=== PATIENT | female | born 1960 | race Caucasian/White ===

== ENCOUNTER 2016-08-07 08:19 | Day surgery (SDC) | payer OTHER ==
--- NOTE | 2016-08-04 13:13 | MH ---
cc: MARIAMA MELENDEZ D.O., ROHIT DATE OF ADMISSION: 08/05/2016 DATE OF ADMISSION 08/05/2016 ADMISSION DIAGNOSIS Neck pain and numbness in the upper and lower extremities. HISTORY OF PRESENT ILLNESS This is a 55-year-old female who presented to us for evaluation of neck pain that she has had for four years, progressively getting worse. She has a history of bilateral rotator cuff repair and has pain radiating into her shoulders. She denies any radicular radiculopathy into the upper extremities but has pain radiating into her head. She has numbness in the upper extremities in a nonspecific dermatomal distribution. More recently she has had numbness in the lower extremities in no specific dermatomal distribution. She denies any bowel or bladder incontinence. She states she has had very poor upper body strength. She has recently been referred to physical therapy. She cannot have an MRI scan secondary to a pacemaker. Dr. Mendes has requested a CT myelogram to further evaluate any significant spinal stenosis. PAST MEDICAL HISTORY Significant for - 1. Hypothyroidism. 2. Sleep apnea. 3. Fatty liver. 4. Pacemaker. 5. Hysterectomy in 2000. 6. Cholecystectomy in 2004. 7. Left rotator cuff repair in 2010 and 2012. 8. Pacemaker placement in 2011. 9. Right rotator cuff and biceps repair in 2015. CURRENT MEDICATIONS 1. Synthroid 137 mcg daily. 2. Omeprazole 40 mg daily. 3. Melatonin 5 mg p.r.n. 4. [employer] Fusion 20 mg b.i.d. 5. Vitamin D3 2000 international units b.i.d. 6. Vitamin B12 500 mcg b.i.d. ALLERGIES TO MEDICATIONS She is allergic to - CODEINE MINOCYCLINE. MORPHINE. PENICILLIN. BRETHINE. TERBUTALINE. FAMILY HISTORY Her mother is at 66 years old, had heart disease and MS. Father is alive 82 years old. Her sister is alive at 55 years old. She had a brother who was at 23 years old from a motor vehicle accident. 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 She is single. She has three children. She lives with her ex-. She smokes 1/4 to 1/2 pack per day for the last year. She drinks 0-2 drinks of alcohol per day. REVIEW OF SYSTEMS CONSTITUTIONAL: She denies any fever or chills. EARS, NOSE AND THROAT: No pharyngitis or exudates. CARDIOVASCULAR: No chest pain. Positive for palpitations. RESPIRATORY: No cough or shortness of breath. GASTROINTESTINAL: No dysuria or hematuria. MUSCULOSKELETAL: Positive for back pain. SKIN: No rashes or pruritus. NEUROLOGIC: No difficulty with vision. Positive for difficulty with speech and memory. GASTROINTESTINAL: Positive for abdominal pain. No nausea. PSYCHIATRIC: No anxiety or depression symptoms. ENDOCRINE: No polyuria or polydipsia. HEMATOLOGIC: Positive for bruising but no bleeding tendencies. PHYSICAL EXAMINATION: HEAD: Normocephalic, atraumatic. NECK: Supple. No carotid bruits heard on auscultation. LUNGS: Clear to auscultation bilaterally. HEART: Regular rate and rhythm. Normal S1, S2. ABDOMEN: Soft, nontender. Positive bowel sounds. SKIN: No cyanosis or erythema. MUSCULOSKELETAL: She has 4+/5 bilateral deltoid strength from shoulder pain. Left triceps is 4/5, otherwise her strength is 5/5 in the upper extremities. NEUROLOGIC: She is awake, alert and oriented. Cranial nerves II through XII appear grossly intact. Her speech is fluent. Comprehension is good. Sensation is decreased in the left upper extremity in all distributions and in the first and fifth fingers. Otherwise intact in the upper and lower extremities. DATA REVIEW We reviewed the CT. Noncontrast CT of the cervical spine from October 25, 2015, which reveals loss of cervical lordosis and slight kyphosis. She has severe degenerative disk disease with anterior and posterior osteophytes involving C4/C5, C5/C6, C6/C7 with some degree of stenosis but since this is not a myelogram study the extent of cervical and foraminal stenosis is difficult to delineate. IMPRESSION A 55-year-old female with chronic history of neck pain along with numbness in the upper and lower extremities. She has pain that radiates from the occiput to the interscapular area. She also suffers from left rotator cuff injury with limited range of motion pain with movement as well as osteoarthritis involving the hands. She has advanced multilevel degenerative disk disease with anterior and posterior osteophytes and some degree of associated spinal stenosis as seen on the plain CT of the cervical spine. She has a cardiac pacemaker in place for bradycardia/syncope and cannot have an MRI scan. PLAN The patient will undergo a CT myelogram of the cervical, thoracic and lumbar spine. The patient will subsequently follow up with us to discuss treatment options. She will also be referred to physical therapy for strengthening exercises. The patient will follow up with us after the myelogram is complete for review and further planning. Dictated by: Ej Lund PA-C MD ROBERTA Pereira/ALIREZA /12:31 PM /12:54 PM
[~2016-08-07] VITALS: Ht 165.1 cm; Wt 69.1 kg
[~2016-08-07 08:19] MED LIST: CHOL1TAB42; LEVO-86 PO; MELA5TAB15 PO; OMEP40CA2 PO; SYNT175T PO; VITA500T4 PO
[2016-08-07 08:41] VITALS: BP 111/71; PULSE 59; RESP 18; TEMP 97.6; O2SAT 98
[2016-08-07] MEDS ORDERED: ALPR.5 PO (09:03)
[2016-08-07] MEDS ORDERED: PAXI10TA2 PO (09:03)
[2016-08-07] MEDS ORDERED: HYDR-3583 PO (09:03)
[2016-08-07] MEDS ORDERED: NITR1SUB3 SL (09:03)
[2016-08-07 09:07] LABS: AUTOMATED NEUTROPHIL # 2.8 TH/MM3 (1.8-7.7); BASOPHIL % 0.5 % (0.0-2.0); EOSINOPHIL # 0.3 TH/MM3 (0-0.4); EOSINOPHIL % 6.5 % (0.0-4.0); HEMATOCRIT 42.8 % (35.0-46.0); HEMO FLAGS DIFF FINAL; LYMPH % 28.8 % (9.0-44.0); LYMPHOCYTE # 1.4 TH/MM3 (1.0-4.8); MEAN CELL VOLUME 95.4 FL (80.0-100.0); MEAN CORPUSCULAR HEMOGLOBIN 32.2 PG (27.0-34.0); MEAN CORPUSCULAR HGB CONC 33.8 % (32.0-36.0); MONO % 6.2 % (0.0-8.0); PLATELET COUNT 194 TH/MM3 (150-450); RED BLOOD COUNT 4.48 MIL/MM3 (4.00-5.30); RED CELL DISTRIBUTION WIDTH 12.5 % (11.6-17.2); WHITE BLOOD COUNT 4.8 TH/MM3 (4.0-11.0)
[2016-08-07 09:16] LABS: PROTHROMBIN TIME - PATIENT 11.6 SEC (9.8-11.6)
[2016-08-07 09:26] LABS: POTASSIUM 3.7 MEQ/L (3.5-5.1)
[2016-08-07] MEDS ORDERED: DIAZEPAM 10 MG TAB ONE (09:33)
--- NOTE | 2016-08-07 10:54 | PD.RAD ---
Post Procedure Progress Note Pre Procedure Diagnosis: (1) Cervical disc disorder with radiculopathy Post Procedure Diagnosis: (1) Cervical disc disorder with radiculopathy Procedure Date: August 07, 2016 Supervising Radiologist: Cooper Vasquez JR Proceduralist/Assist: Kathy Jaramillo, RT(R), Dawn Lyons RT(R)() Anesthesia: Local Plan of Activity Patient to Unit: [facility]OPU Patient Condition: Good See PACS Report for procedural detail/treatment Spinal Procedure Myelogram L3-L4 Fluid Description: Clear Puncture Time: 10:12 Findings: complete myelogram. CT pending Jr. Pedro,Cooper Monterroso MD August 07, 2016 10:54
[2016-08-07 11:20] VITALS: BP 120/78; PULSE 60; RESP 20; TEMP 98.4; O2SAT 98
--- NOTE | 2016-08-07 11:50 | RADRPT ---
EXAM DATE/TIME: 08/07/2016 10:55 [facility] COMPARISON: No previous studies available for comparison. INDICATIONS : Patient is in need of a complete myelogram for evaluation of spinal stenosis. MEDICAL HISTORY : History of hypothyroidism, fatty liver. SURGICAL HISTORY : History of cardiac catheterization, pacemaker placement, gastric bypass, cholecystectomy, hysterectom y, bilateral rotator cuff repair. ENCOUNTER: Initial ACUITY: 1 week PAIN SCORE: 0/10 LUMBAR PUNCTURE TIME: 1009 hours FLUORO TIME: 1.2 minutes IMAGE SERIES: 5 CONTRAST: 18 cc Omnipaque (iohexol) 300 ACCESS LEVEL: L3-4 PROCEDURE : 1. Fluoroscopic guided lumbar puncture. 2. Instillation of intrathecal contrast. 3. Total spinal axis myelogram. The risks, benefits and alternatives to the procedure were explained and verbal and written consent w as obtained. The site was prepped in sterile fashion. Full sterile technique was used, including ca p, mask, sterile gloves and gown and a large sterile sheet. Hand hygiene and 2% chlorhexidine and/or betadine/alcohol prep was utilized per protocol for cutaneous antisepsis. The skin and subcutaneous tissues were infiltrated with local anesthetic solution. With fluoroscopic guidance the lumbar thecal sac was punctured at level above and a diagnostic quanti ty of contrast is present in the subarachnoid space. Following the lumbar radiographs contrast was r un cephalad and radiographs were obtained of the thoracic spine. Under fluoroscopic guidance contras t was placed in the cervical region and radiographs were obtained of the cervical region. The patient tolerated procedure well and there were no complications. CT scan is to be performed for further evaluation. CONCLUSION: Uncomplicated total axis myelogram as above. CT scan is to be performed for further evaluation. Cooper Vasquez Jr., MD on August 07, 2016 at 11:48 Board Certified Radiologist. This report was verified electronically.
--- NOTE | 2016-08-07 12:01 | RADRPT ---
EXAM DATE/TIME: 08/07/2016 11:00 [facility] COMPARISON: No previous studies available for comparison. INDICATIONS : Post-myelogram evaluation. RADIATION DOSE: 24.82 CTDIvol (mGy) MEDICAL HISTORY : Cardiovascular disease. Spinal stenosis. SURGICAL HISTORY : Pacemaker. Cholecystectomy.Hysterectomy. ENCOUNTER: Initial ACUITY: 1 day PAIN SCALE: 3/10 LOCATION: neck TECHNIQUE: Volumetric scanning of the cervical spine was performed. Multiplanar reconstructions in the sagittal, coronal and oblique axial planes were performed. Using automated exposure control and adjustment o f the mA and/or kV according to patient size, radiation dose was kept as low as reasonably achievable to obtain optimal diagnostic quality images. FINDINGS: Sagittal images demonstrate normal vertebral body alignment and curvature. The odontoid is intact. Th e occipital condyles and lateral masses of C1 are intact. Axial images were performed from C2-C3 to C7-T1. There is multilevel disc space narrowing and marginal osteophyte formation maximal at C6-C7. There is osteorathritis involving the atlantoaxial joint with sclerosis and osteophyte formation. The exam is performed following myelography. C2-C3: There is mild diffuse annular bulge of the disc. The neural foramina are clear bilaterally. There is no significant spinal canal stenosis. C3-C4: A small central protrusion is present impinging on the thecal sac but not significantly deforming the cord. C4-C5: A central disc protrusion is present impinging on the thecal sac. There is no significant spinal berenice l stenosis. The neural foramina are clear bilaterally. C5-C6: There is osteophytic ridging asymmetric to the right. There is no significant spinal canal stenosis. The neural foramina are clear bilaterally. C6-C7: There is osteophytic ridging asymmetric to the right. The neural foramina are clear bilaterally. Ther e is no significant spinal canal stenosis. This compromises the exiting right-sided nerve root exit z one. C7-T1: There is no evidence of disc protrusion or spinal canal stenosis. There is mild facet arthritis bilat erally. CONCLUSION: 1. Multiple degenerative disc disease with central protrusions maximal at C4-C5 and C5-C6 without sig nificant stenosis. Deven Barajas MD on August 07, 2016 at 11:50 Board Certified Radiologist. This report was verified electronically.
--- NOTE | 2016-08-07 12:08 | RADRPT ---
EXAM DATE/TIME: 08/07/2016 11:04 [facility] COMPARISON: No previous studies available for comparison. INDICATIONS : Post-myelogram evaluation. RADIATION DOSE: 26.42 CTDIvol (mGy) ; Combined studies - Thoracic Spine/Lumbar Spine MEDICAL HISTORY : Cardiovascular disease. Spinal stenosis. SURGICAL HISTORY : Pacemaker. Cholecystectomy.Hysterectomy. ENCOUNTER: Initial ACUITY: 1 day PAIN SCALE: 3/10 LOCATION: spine. TECHNIQUE: Volumetric scanning of the thoracic spine was performed. Multiplanar reconstructions in the sagittal , coronal and oblique axial planes were performed. Using automated exposure control and adjustment o f the mA and/or kV according to patient size, radiation dose was kept as low as reasonably achievable to obtain optimal diagnostic quality images. FINDINGS: FINDINGS: Sagittal images demonstrate normal vertebral body alignment and curvature. No fractures identified. A xial images performed from T1-T2 through T12-L1. There is multilevel disc space narrowing and margina l osteophyte formation maximal at T8-T9. T1-T2: No significant abnormalities identified. T2-T3: No significant abnormalities identified. T3-T4: There is no evidence of disc protrusion or spinal canal stenosis. There is mild facet arthritis bilat erally. T4-T5: There is no evidence of disc protrusion or spinal canal stenosis. T5-T6: There is mild facet arthritis bilaterally. There is no evidence of disc protrusion or spinal canal st enosis. T6-T7: There is no evidence of disc protrusion or spinal canal stenosis. T7-T8: No significant abnormalities identified. T8-T9: A small central to left sided protrusion is present not significantly impinging on the thecal sac. Th ere is no significant spinal canal stenosis. The neural foramina are clear bilaterally. T9-T10: No significant abnormalities identified. T10-T11: No significant abnormalities identified. T11-T12: No significant abnormalities identified. T12-L1: A calcified central disc protrusion is present impinging on the thecal sac. There is no significant s tierra canal stenosis. CONCLUSION: 1. Central protrusion at T12-L1 and a smaller protrusion at T8-T9. There is no significant spinal can al stenosis. Deven Barajas MD on August 07, 2016 at 12:00 Board Certified Radiologist. This report was verified electronically.
--- NOTE | 2016-08-07 12:42 | RADRPT ---
EXAM DATE/TIME: 08/07/2016 11:04 [facility] COMPARISON: No previous studies available for comparison. INDICATIONS : Post-myelogram evaluation. RADIATION DOSE: 26.42 CTDIvol (mGy) ; Combined studies - Thoracic Spine/Lumbar Spine MEDICAL HISTORY : Cardiovascular disease. Spinal stenosis. SURGICAL HISTORY : Pacemaker. Hysterectomy.Cholecystectomy. ENCOUNTER: Initial ACUITY: 1 day PAIN SCALE: 3/10 LOCATION: spine. TECHNIQUE: Volumetric scanning of the lumbar spine was performed. Multiplanar reconstructions in the sagittal, coronal and oblique axial planes were performed. Using automated exposure control and adjustment of the mA and/or kV according to patient size, radiation dose was kept as low as reasonably achievable t o obtain optimal diagnostic quality images. FINDINGS: Sagittal images demostrate normal vertebral body alignment and curvature. No fractures are identified . Axial images performed from T12-L1 through L5-S1. The exam is performed following myelography. T12-L1: There is central calcified disc impinging on the thecal sac ventrally and touching the ventral aspect of the cord. There is no significant spinal canal stenosis. L1-L2: There is mild diffuse annular bulge of the disc. The neural foramina are clear bilaterally. There is no significant spinal canal stenosis. L2-L3: No significant abnormalities identified. L3-L4: There is no evidence of disc protrusion or spinal canal stenosis. There is mild facet arthritis bilat erally. The neural foramina are clear bilaterally. L4-L5: There is no evidence of disc protrusion or spinal canal stenosis. There is moderate facet arthritis b ilaterally with ligamentum flavum hypertrophy. The neural foramina are clear bilaterally. L5-S1: There is central calcified disc without significant stenosis. The nerve roots are intact. The disc me asures one CM by 1.2 CM. CONCLUSION: 1. Central calcified disc at T12-S1 impinging on the thecal sac as above without significant stenosis . 2. There is also a central calcified disc at L5-S1 without stenosis or nerve or compromise. Deven Barajas MD on August 07, 2016 at 12:37 Board Certified Radiologist. This report was verified electronically.
[2016-08-07 14:25] VITALS: BP 109/73; PULSE 60; RESP 18; TEMP 98; O2SAT 97
== END 2016-08-07 14:25 | disposition home or self-care (01) ==
LOC: HROP 08:19 → HRIP 08:20 → HROP 14:25
PROVIDERS: ATTEND Neurological Surgery
DX: M51.16 Intervertebral disc disorders with radiculopathy, lumbar region (principal); M54.2 Cervicalgia; R20.0 Anesthesia of skin; M51.85 Other intervertebral disc disorders, thoracolumbar region; M51.87 Other intervertebral disc disorders, lumbosacral region
CPT/HCPCS: 62305; 72125; 72128; 72131; 80048; 85025; 85610; 85730

== ENCOUNTER → 2016-10-30 | Outpatient (CLI) | payer OTHER ==
[~2016-10-30] MED LIST changes: +ALPR.5 PO; -CHOL1TAB42; +CHOL1TAB42 PO; +DIAZ5 PO; +HYDR-3583 PO; +LEVO125T4 PO; -MELA5TAB15 PO; +MULT-65 PO; +NITR1SUB3 SL; +OXYC1TAB36 PO; +PAXI10TA2 PO; -SYNT175T PO
== END ==
LOC: CPRE 12:28
PROVIDERS: ATTEND Neurological Surgery
DX: M50.10 Cervical disc disorder with radiculopathy, unspecified cervical region (principal); M48.02 Spinal stenosis, cervical region; M50.30 Other cervical disc degeneration, unspecified cervical region

== ENCOUNTER 2016-11-04 05:54 | Observation (INO) | payer OTHER ==
--- NOTE | 2016-11-03 17:39 | MH ---
cc: MARIAMA MELENDEZ ROHIT K. M.D. DATE OF ADMISSION 11/04/2016 ADMISSION DIAGNOSIS Cervical degenerative disk disease. HISTORY OF PRESENT ILLNESS This is a 56-year-old female with a chronic history of neck pain which she has had for the last several years with progressive worsening neck pain that radiates into the scapular area bilaterally as well as a left occiput and head up to the forehead. She also complains of chronic numbness in the upper extremities in a non dermatomal pattern. She has bilateral shoulder pain left more than right and has had three rotator cuff surgeries in her right rotator cuff and she was informed that she needs reverse shoulder replacement on the left side. She has a pacemaker in place and cannot have an MRI scan. She was previously seen in February of 2016 and was recommended to continue conservative measures and she was referred to physical therapy. She states that the therapy helped her temporarily but her symptoms continued to progress. She has been using Lortab 4 tablets a day. A complete spine myelogram with post myelogram CT was undertaken on August 07, 2016 to further evaluate her symptoms and she has advanced degenerative disk disease along the C4-C5 and C5-C6 levels with a disk/osteophyte complex and overall mild stenosis. There is also a large anterior osteophyte and disk degeneration at the C6-C7 level. There is no other significant thoracic or lumbar spine stenosis noted. PAST MEDICAL HISTORY Significant for: 1. Hypothyroidism. 2. Gastroesophageal reflux disease. 3. Sleep apnea. 4. Liver disease. 5. Pacemaker 2011. 6. Cholecystectomy in 2004. 7. Left rotator cuff in 2010, right rotator cuff in 2015. CURRENT MEDICATIONS 1. She takes vitamin B12 500 mcg p.o. daily. 2. Vitamin D. 3. Melatonin 5 mg p.o. q.h.s. 4. Omeprazole 40 mg p.o. daily. 5. Synthroid 137 mcg p.o. daily. ALLERGIES SHE IS ALLERGIC TO MINOCIN, MORPHINE, PENICILLIN AND CODEINE. SOCIAL HISTORY She drinks 0-2 drinks per day. She denies any substance abuse. She smokes daily. FAMILY HISTORY Noncontributory to her current problem. REVIEW OF SYSTEMS CONSTITUTIONAL: She denies any fever or chills. EARS, NOSE, AND THROAT: No pharyngitis. Positive for sinus drainage. CARDIOVASCULAR: Positive for palpitations. No chest pain. RESPIRATORY: No cough or shortness of breath. GENITOURINARY: No dysuria, hematuria. MUSCULOSKELETAL: Positive for neck pain. SKIN: No rashes or pruritus. NEUROLOGIC: Positive for difficulty with speech and memory. GASTROINTESTINAL: No nausea, vomiting, or abdominal pain. ENDOCRINE: Positive for heat and cold intolerance. HEMATOLOGIC: Positive for easy bruising. IMAGING Data reviewed. A complete spine myelogram with post myelogram CT was undertaken on August 07, 2016 which reveals advanced degenerative disc disease involving C4-C5 and T5-T6 with disk/osteophyte complex and overall mild stenosis. There is also a large anterior osteophyte and disk degeneration at the C6-C7 level. There is no significant thoracic or lumbar spine stenosis noted. IMPRESSION A 56-year-old female with chronic progressive neck pain with associated bilateral shoulder and scapular pain and headaches with numbness in the upper extremities. She has failed conservative measures including physical therapy and continues to require narcotic pain medications for pain which is not adequately controlled. The patient has advanced C4-C5 and C5-C6 degenerative disease with disk osteophyte complex as well as less severe degenerative changes at the C6-C7 level. PLAN We recommend a C4-C5 and C5-C6 microdiskectomy with fusion. The procedure as well as the risks, benefits and alternatives and recovery time were explained in great detail with the patient. We have discussed the procedure using spine models in the office and all of her questions were answered to her satisfaction. We have discussed the risks involved with surgery which include but not limited to bleeding, infection, muscle weakness, voice hoarseness, difficulty swallowing, heart attack, stroke, blood clots, non fusion, scar tissue formation among others. The patient states that she understands the procedure as well as the risks involved and she is requesting that we proceed and she was therefore scheduled accordingly. ADDENDUM PHYSICAL EXAMINATION HEAD: Normocephalic, atraumatic. NECK: Supple. No carotid bruits heard on auscultation. LUNGS: Clear to auscultation bilaterally. HEART: Regular rate and rhythm. Normal S1, S2. ABDOMEN: Soft, nontender. Positive bowel sounds. SKIN: No cyanosis or erythema. MUSCULOSKELETAL: She has 4+/5 bilateral deltoid strength from shoulder pain, 4/5 left triceps. Otherwise 5/5 strength in the upper extremities. NEUROLOGIC: She is awake, alert and oriented. Cranial nerves II through XII are grossly intact. Speech is fluent. Comprehension is good. She follows commands well. Sensation is decreased in the left upper extremity and all distributions in the first and fifth fingers. Otherwise intact in the extremities. DICTATED BY: Ej Lund PA-C MD ROBERTA Pereira/KK /4:44 PM /8:39 AM
[~2016-11-04] VITALS: Ht 165.1 cm; Wt 73.2 kg
[~2016-11-04 05:54] MED LIST changes: -DIAZ5 PO; -LEVO-86 PO; -NITR1SUB3 SL; -OXYC1TAB36 PO; -PAXI10TA2 PO
[2016-11-04] MEDS ORDERED: INSULIN HUMAN REGULAR 1,000 UNITS/10 ML VIAL SQ PRN (06:15)
[2016-11-04] MEDS ORDERED: LACTATED RINGER'S 1000 ML IV PRN (06:15)
[2016-11-04] MEDS ORDERED: SODIUM CHLOR 0.9% 1000 ML INJ 1,000 ML IV SCH (06:15)
[2016-11-04] MEDS ORDERED: CHLORHEXIDINE GLUCONATE 2 % 1 PACK (2 CLOTHS) TOPICAL PRN (06:15)
[2016-11-04] MEDS ORDERED: METOPROLOL TARTRATE 25 MG TAB PO PRN (06:15)
[2016-11-04] MEDS ORDERED: SODIUM CHLORID 0.9% 500 ML IV PRN (06:15)
[2016-11-04] MEDS ORDERED: POVIDONE IODINE 5% (ANTISEPSIS KIT) 4 APPLICATIONS EACH NARE PRN (06:15)
[2016-11-04] MEDS ORDERED: VANCOMYCIN 1000 MG/NS 250 ML IV SCH ×2 (06:30)
[2016-11-04 06:44] VITALS: BP 118/77; PULSE 60; RESP 18; TEMP 97.2; O2SAT 97
[2016-11-04] MEDS ORDERED: VANCOMYCIN HCL 1000 MG VIAL ONE (07:06)
[2016-11-04] MEDS ORDERED: BUPIVACAINE/EPINEPHRINE 0.5% 50 ML VIAL ONE (07:06)
[2016-11-04] MEDS ORDERED: GELFOAM SIZE 100 ONE ×2 (07:07→11:11)
[2016-11-04] MEDS ORDERED: THROMBIN (TOPICAL) 5,000 UNIT VIAL ONE ×3 (07:09→11:12)
[2016-11-04] MEDS ORDERED: GELFOAM SIZE 100 TOPICAL ONE (09:31)
[2016-11-04] MEDS ORDERED: PROPOFOL 200 MG/20 ML AMP IV ONE (12:00)
[2016-11-04] MEDS ORDERED: ONDANSETRON HCL 4 MG/2 ML VIAL IV PUSH ONE (12:00)
[2016-11-04] MEDS ORDERED: *HYDROmorphone PF 1 MG VIAL PERIprocedural Use ONLY ONE (12:19)
[2016-11-04] MEDS ORDERED: MIDAZOLAM HCL 2 MG/2 ML VIAL ONE (12:21)
[2016-11-04] MEDS ORDERED: fentaNYL CITRATE 250 MCG/5 ML AMP ONE (12:22)
[2016-11-04] MEDS ORDERED: NS + KCL 20 MEQ INJ 1,000 ML IV SCH (12:29)
[2016-11-04] MEDS ORDERED: HYDROmorphone HCL PF 1 MG/ML VIAL IV PUSH PRN (12:30)
[2016-11-04] MEDS ORDERED: ACETAMINOPHEN/HYDROcodone 325 MG/10 MG TAB PO PRN ×2 (12:30)
[2016-11-04] MEDS ORDERED: SODIUM CHLORIDE 0.9% FLUSH 10 ML FLUSH IV FLUSH PRN (12:30)
[2016-11-04] MEDS ORDERED: ONDANSETRON HCL 4 MG/2 ML VIAL IV PRN (12:30)
[2016-11-04] MEDS ORDERED: ZOLPIDEM TARTRATE 5 MG TAB PO PRN (12:30)
[2016-11-04] MEDS ORDERED: cloNIDine HCL 0.1 MG TAB PO PRN (12:30)
[2016-11-04] MEDS ORDERED: ALUMINUM/MAGNESIUM/SIMETH 30 ML CUP PO PRN (12:30)
[2016-11-04] MEDS ORDERED: MAGNESIUM HYDROXIDE SUSP 30 ML CUP PO PRN (12:30)
[2016-11-04] MEDS ORDERED: RESP: ALBUTEROL 2.5 MG/3 ML NEB (PRN) NEB (12:30)
[2016-11-04] MEDS ORDERED: MENTHOL LOZENGE BUCCAL PRN (12:30)
[2016-11-04] MEDS ORDERED: METOCLOPRAMIDE HCL 10 MG/2 ML VIAL IVS PRN (12:30)
[2016-11-04] MEDS ORDERED: ACETAMINOPHEN 325 MG TAB PO PRN (12:30)
--- NOTE | 2016-11-04 12:35 | RADRPT ---
EXAM DATE/TIME: 11/04/2016 09:07 [facility] COMPARISON: No previous studies available for comparison. INDICATIONS : Post-op C4-C5, C5-C6 anterior cervical fusion. MEDICAL HISTORY : None. SURGICAL HISTORY : None. ENCOUNTER: Subsequent ACUITY: 1 day PAIN SCORE: Non-responsive. LOCATION: neck FINDINGS: Two projection examination was performed. Anterior cervical fusion plate extending from C4-C6 with st abilization devices at C4-C5 and C5-C6 disc levels. The hardware appears well placed. CONCLUSION: Successful placement of surgical hardware as described above. Iván Schmitz MD on November 04, 2016 at 12:33 Board Certified Radiologist. This report was verified electronically.
--- NOTE | 2016-11-04 12:36 | RADRPT ---
EXAM DATE/TIME: 11/04/2016 09:07 [facility] COMPARISON: No previous studies available for comparison. INDICATIONS : C4-C5, C5-C6 anterior cervical fusion. Level localization. MEDICAL HISTORY : None. SURGICAL HISTORY : None. ENCOUNTER: Subsequent ACUITY: 1 day PAIN SCORE: Non-responsive. LOCATION: neck FINDINGS: A single lateral view of the cervical spine was performed. There is a surgical probe directed toward s the C5-C6 disc level. CONCLUSION: Surgical probe directed toward the C5-6 level. Iván Schmitz MD on November 04, 2016 at 12:34 Board Certified Radiologist. This report was verified electronically.
--- NOTE | 2016-11-04 12:42 | PD.OP ---
DO Taylor Chandler MD Arthur Crossman, MD Operative Report Date of Surgery: Nov 04, 2016 Preoperative Diagnosis: Cervical C4-5 and C5-6 degenerative disc disease with disc osteophyte complex and associated spinal and foraminal stenosis; intractable neck pain with radiculopathy Postoperative Diagnosis: Same Procedure: Anterior cervical C4-5 and C5-6 microdiscectomy with interbody fusion; anterior C4-6 cervical plate placement; C4-5 and C5-6 interbody cage placement; microsurgical technique Anesthesia: Gen. endotracheal by Sultana Ayala Surgeon: Nikhil Mendes M.D. Lathe Sander(s): Jonelle Fowler Operation and Findings: Following administration of general endotracheal anesthesia, the patient received a gram of vancomycin and Decadron 10 mg intravenously. Patel catheter and Sequential compression devices were placed in supine position on a Slava table and all pressure points adequately padded. The head secured in a donut and anterior cervical region then shaved and prepped with Chloraprep and sterilely draped with Ioban along with the usual sterile draping. A transverse skin incision on the left side of the neck was then made after infiltrating the skin with 0.5% Marcaine with epinephrine solution extending down through the platysma. At the anterior border of the sternocleidomastoid further dissection was undertaken developing a plane between the carotid sheath laterally and the trachea esophagus medially. The prevertebral fascia was exposed and dissected out. The medial attachments of the longus colli muscles were detached and a self-retaining retractor used for exposure. The C5-6 disc space was localized with a marking the disc space and using lateral fluoroscopy. [place] distraction screws 14 mm length were placed one in the C4 and one in the C6 body interbody distraction and exposure. There was significant disc degeneration with disc height collapse and anterior osteophytes noted at the C4- 5 and C5-6 levels and the osteophytes were resected with a Leksell and annulus incised with a 15 blade and further dissection undertaken using microtechnique with microscope magnification. Diskectomy was undertaken with pituitaries and the endplates were also decorticated with curettes and drill bit. And more posteriorly there was disk osteophyte complex compressing the thecal sac along with a significant uncovertebral joint hypertrophy with foraminal stenosis which was decompressed along with removal of the posterior longitudinal ligaments at both levels. There was partial calcification of the posterior longitudinal ligaments noted also. The foramen was decompressed bilaterally using a Kerrison's and palpation with a nerve hook, the exiting nerve roots were felt to be free. The area was then copiously irrigated. I then placed a Peek cage packed with local autograft bone at the C5-6 interspace under fluoroscopy guidance. [place] distraction pins were removed and the holes plugged with Gelfoam for hemostasis. In order to facilitate the fusion and provide stabilization, one at the C4-5 and another one at the C5-6 interspace and a Precision spine cervical plate was then placed with two 14 mm variable angle screws in the C4 and C5 body and two 14 mm fixed angle screws in the C6 body. The plate screw locking mechanism was then engaged. AP and lateral fluoroscopy confirmed good placement of the construct and the retractor was then removed. Muscular bleeding points were cauterized with bipolar cautery and Gelfoam was then also used for hemostasis which was removed. The platysma was then approximated using 3-0 Vicryl interrupted stitches and 3-0 Vicryl subcuticular stitch also placed in an interrupted fashion, and final skin closure was with Mastisol and Steri-Strips. Sterile dressing was then applied. The neck was immobilized in a [place] J collar. The patient was then extubated and taken to the recovery room. There are no intraoperative complications and all sponge and needle counts were correct at the end of procedure. Estimated blood loss was about 100 cc. The patient did undergo intraoperative neurologic monitoring which remained stable throughout the surgery. Nikhil Mendes MD Nov 04, 2016 12:42
[2016-11-04] MEDS ORDERED: DO NOT ADM ANY ANTICOAGULANT DRUGS PRN (12:45)
[2016-11-04] MEDS ORDERED: CYCLOBENZAPRINE HCL 10 MG TAB PO SCH (13:00)
[2016-11-04] MEDS: DEXAMETHASONE SOD PHOS 4 MG/ML VIAL IV SCH ×2 (13:09→18:38)
[2016-11-04] MEDS ORDERED: oxyCODONE/ACETAMINOPHEN 10 MG/325 MG TAB PO PRN (15:00)
[2016-11-04 16:00] VITALS: BP 118/70; PULSE 69; RESP 18; TEMP 96.5; O2SAT 99
[2016-11-04] MEDS ORDERED: DIAZEPAM 5 MG TAB PO PRN (16:00)
[2016-11-04] MEDS: oxyCODONE/ACETAMINOPHEN 10 MG/325 MG TAB PO PRN ×2 (18:37→23:57)
[2016-11-04 20:06] VITALS: BP 106/68; PULSE 61; RESP 18; TEMP 97.4; O2SAT 96
[2016-11-04] MEDS: VANCOMYCIN INJ 1,000 MG in SODIUM CHLOR 0.9% 250 ML INJ 250 ML IV SCH (21:25)
[2016-11-04] MEDS: SODIUM CHLORIDE 0.9% FLUSH 10 ML FLUSH IV FLUSH SCH (21:26)
[2016-11-04] MEDS: DOCUSATE SODIUM 100 MG CAP PO SCH (21:26)
[2016-11-04] MEDS: DIAZEPAM 5 MG TAB PO SCH (23:57)
[2016-11-05 00:24] VITALS: BP 102/61; PULSE 63; RESP 18; TEMP 96.7; O2SAT 96
[2016-11-05] MEDS: oxyCODONE/ACETAMINOPHEN 10 MG/325 MG TAB PO PRN ×3 (04:27→11:23)
[2016-11-05] MEDS: DEXAMETHASONE SOD PHOS 4 MG/ML VIAL IV SCH (04:27)
[2016-11-05 04:34] VITALS: BP 105/63; PULSE 62; RESP 17; TEMP 97; O2SAT 95
[2016-11-05] MEDS ORDERED: LEVOTHYROXINE SODIUM 125 MCG TAB PO SCH (06:00)
[2016-11-05] MEDS: DIAZEPAM 5 MG TAB PO SCH (06:41)
[2016-11-05 08:00] VITALS: BP 104/66; PULSE 65; RESP 19; TEMP 96.3; O2SAT 96
[2016-11-05] MEDS: DOCUSATE SODIUM 100 MG CAP PO SCH (08:32)
[2016-11-05] MEDS: SODIUM CHLORIDE 0.9% FLUSH 10 ML FLUSH IV FLUSH SCH (08:34)
[2016-11-05] MEDS: VANCOMYCIN INJ 1,000 MG in SODIUM CHLOR 0.9% 250 ML INJ 250 ML IV SCH (08:34)
[2016-11-05] MEDS ORDERED: PANTOPRAZOLE SOD 40 MG DELAYED RELEASE TAB PO PRN (09:00)
[2016-11-05] MEDS ORDERED: CHOLECALCIFEROL (VIT D3) 1000 UNIT TAB PO SCH (09:00)
[2016-11-05] MEDS ORDERED: MULTIVITAMIN TAB PO SCH (09:00)
[2016-11-05] MEDS ORDERED: CYANOCOBALAMIN 1,000 MCG TAB PO SCH (09:00)
[2016-11-05] MEDS ORDERED: PANTOPRAZOLE SOD 40 MG DELAYED RELEASE TAB PO SCH (09:00)
--- NOTE | 2016-11-05 10:13 | HHI.NSPN ---
History Chief Complaint: Mild sore throat. Interval History 11/05/16: Pt awake and alert. Mild sore throat. No radiculopathy. Mild posterior neck discomfort. Mild paresthesias in left 4th and 5th fingers. Pt ambulating. Requests discharge home. Review of Systems General: Negative for: fever, chills, insomnia Respiratory: Negative for: shortness of breath, cough, sputum Cardiovascular: Negative for: chest pain Gastrointestinal: Negative for: nausea, vomitting, diarrhea, constipation Exam Results Vital Signs Date Time Temp Pulse Resp B/P Pulse Ox O2 Delivery O2 Flow Rate FiO2 11/05/16 08:00 96.3 65 19 104/66 96 11/05/16 01:14 Nasal Cannula 4.00 Intake and Output 11/04/16 11/04/16 11/05/16 08:00 16:00 00:00 Intake Total 2110 ml 480 ml Output Total 975 ml Balance 1135 ml 480 ml Physical Examination Resp: CTA bilaterally Heart: NSR no murmurs Abd: Soft positive bs Skin: Incision clean and dry. New bandage placed. Muscle: Moves all 4 extremities well. Neuro: Pt awake and alert. Follows commands well. Speech clear and appropriate. Lab, Micro, Other Results Last Impressions Cervical Spine X-Ray 11/04/16 0000 Signed Impressions: Service Date/Time: Friday, November 04, 2016 09:07 - CONCLUSION: Surgical probe directed toward the C5-6 level. Iván Schmitz MD 11/04/16 11/04/16 11/05/16 15:00 23:00 07:00 Intake Total 2110 ml 480 ml 360 ml Output Total 975 ml Balance 1135 ml 480 ml 360 ml Intake Oral 610 ml 480 ml 360 ml Other 1500 ml Output Urine Total 875 ml Estimated Blood Loss 100 ml # Voids 3 5 1 # Bowel Movements 0 0 0 Medical Decision Making Impression and Plan A: 56 y/o FM s/p C4/C5 and C5/C6 ACF with plate placement P: Discharge home Keep incision clean and dry No smoking or NSAIDs pt understood. Ej Lund Nov 05, 2016 10:13
[2016-11-05] MEDS ORDERED: DIAZ5 PO (10:21)
[2016-11-05 12:00] VITALS: BP 109/66; PULSE 68; RESP 17; TEMP 95.2; O2SAT 96
[2016-11-05] MEDS ORDERED: OXYC1TAB36 PO (12:32)
== END 2016-11-05 13:04 | disposition home or self-care (01) ==
LOC: HSDC 05:54 → HSDI 12:36 → N06A 13:41
PROVIDERS: ADMIT Neurological Surgery; ATTEND Neurological Surgery
DX: M50.10 Cervical disc disorder with radiculopathy, unspecified cervical region (principal); M48.02 Spinal stenosis, cervical region; F17.200 Nicotine dependence, unspecified, uncomplicated; E03.9 Hypothyroidism, unspecified; G47.30 Sleep apnea, unspecified; K21.9 Gastro-esophageal reflux disease without esophagitis; M25.78 Osteophyte, vertebrae; Z90.49 Acquired absence of other specified parts of digestive tract; Z95.0 Presence of cardiac pacemaker
CPT/HCPCS: 00600; 20936; 22551; 22552; 22845; 22853; 72020; 72040; 76000; 94150; C1713; G0378; J1100; J1170; J2250; J2405; J3010; J3370; J3480; J7050; J7120; L0150; L0172